=== PATIENT | male | born 1985 | race Caucasian/White ===

== ENCOUNTER 2021-11-20 14:13 | Outpatient (CLI) | payer OTHER, BC, SELFPAY ==
--- NOTE | 2021-11-20 14:30 | MR_ITS ---
[facility] [address] [address] Phone:?[phone] Fax:?[phone] Referring Physician Information: . KELECHI Rueda [id number] [facility] [id number] Phone:?[phone] Fax:?[phone] Patient:?Marin Vila Lei.Justin.B:?1985 Sex:?Male Phone:?[phone] [facility] MRN:?[id number] Exam Date:?11/20/2021 ? EXAM: MRI OF THE RIGHT ELBOW, WITHOUT CONTRAST CLINICAL: History of suspected distal biceps tendon tear. COMPARISONS: None available. TECHNICAL: MR sequences of the right elbow: Axials: PD, T2 Coronals: PD, STIR, T2, T1 Sagittals: PD, T2 SEDATION: None. CONTRAST: None. FINDINGS: Evaluation of some of the sequences is relatively limited by motion artifact, especially the sagittal sequences. Elbow joint: Effusion: Physiologic. Radiohumeral plica: No pathologic thickening or enlargement. Osteochondral surfaces: No osteochondral abnormality. Bones: No suspicious marrow signal alteration, fracture line, subluxation or dislocation. Myotendinous structures: Biceps: There is complete full-thickness rupture of the distal biceps tendon from the radial attachment site with approximately 3 cm of proximal retraction of torn tendon fibers. Brachialis: No strain/tear. Triceps: Intact posterior tendinous and anterior muscular insertions. No significant tendinosis. Forearm extensors: No tear or tendinopathy. Forearm flexors: No tear or tendinopathy. Ligaments: Medial ulnar collateral: No sprain or disruption. Radial collateral proper: Normal. Lateral ulnar collateral: Normal. Nerves: Ulnar: Normal, without appreciable edema, thickening or mass. Median: Normal. Radial: Normal. IMPRESSION: 1. Complete full-thickness rupture of the distal biceps tendon from the radial attachment site with approximately 3 cm of proximal retraction of torn tendon fibers. 2. No additional internal derangement identified. JCZ Electronically signed on 11/21/2021 7:39:00 AM by Klever Burnett D.O.
== END 2021-11-20 14:14 | disposition home or self-care (01) ==
PROVIDERS: Visit Provider Physician Assistant Medical
DX: M25.521 Pain in right elbow (principal); S49.91XA Unspecified injury of right shoulder and upper arm, initial encounter
CPT/HCPCS: 73221